=== PATIENT | male | born 1950 | race American Indian/Alaskan Native ===

== ENCOUNTER 2016-08-21 13:21 | Emergency (ER) | payer SELFPAY ==
[2016-08-21 13:21] VITALS: BMI 25.1
[2016-08-21 13:32] VITALS: TEMP 97.6
[2016-08-21] MEDS ORDERED: Naproxen 550 mg Tab PO STA (14:05)
--- NOTE | 2016-08-21 14:10 | C.PDOC ---
History Of Present Illness 66 yr old male presents to the ER with complaints of left shoulder pain. Patient states he was walking [place] yesterday on [place] when he slipped and fell. Patient denies LOC, back pain, weakness or numbness to the extremities. Time Seen by Provider: 08/21/16 13:47 Chief Complaint (Nursing): Upper Extremity Problem/Injury History Per: Patient History/Exam Limitations: no limitations Onset/Duration Of Symptoms: Days (1) Current Symptoms Are (Timing): Still Present Past Medical History Reviewed: Historical Data, Nursing Documentation, Vital Signs Vital Signs: Last Vital Signs Temp 97.6 F 08/21/16 13:29 Pulse 75 08/21/16 15:37 Resp 18 08/21/16 15:37 BP 132/75 08/21/16 15:37 Pulse Ox 98 08/21/16 15:37 - Medical History PMH: Arthritis, CAD, Diabetes, HTN, Hypercholesterolemia Surgical History: Coronary Stent (2011) - [facility] Procedures CLOSED ENDOSCOPIC BIOPSY OF LARGE INTESTINE (08/20/13) INSERTION OF ONE VASCULAR STENT (03/04/12) INSRT OF DRUG-ELUTING CORON ARTERY STENTS(S) (03/04/12) PERCUTANEOUS TRANSLUMINAL CORONARY ANGIOPLASTY [PTCA] (03/04/12) PROCEDURE ON SINGLE VESSEL (03/04/12) Family History: States: No Known Family Hx - Social History Hx Tobacco Use: Yes Hx Alcohol Use: No Hx Substance Use: No - Immunization History Hx Tetanus Toxoid Vaccination: No Hx Influenza Vaccination: No Hx Pneumococcal Vaccination: No Review Of Systems Except As Marked, All Systems Reviewed And Found Negative. Musculoskeletal: Positive for: Shoulder Pain (left shoulder). Negative for: Back Pain Neurological: Negative for: Weakness, Numbness Physical Exam - Physical Exam Appears: Non-toxic, No Acute Distress Skin: Warm, Dry Head: Atraumatic, Normacephalic Neck: Normal, Normal ROM, No Paracervical Tenderness, No Step Off Deformity, Supple Chest: Symmetrical, No Tenderness Cardiovascular: Rhythm Regular, No Murmur Respiratory: Normal Breath Sounds, No Rales, No Rhonchi, No Stridor, No Wheezing Extremity: Tenderness (Left shoulder tenderness), Swelling (Left shoulder, mild swelling) Neurological/Psych: Oriented x3, Normal Speech, Normal Motor ED Course And Treatment O2 Sat by Pulse Oximetry: 99 - Other Rad X-ray - Left Shoulder X-Ray: Viewed By Me, Read By Radiologist Interpretation: PROCEDURE: Radiographs of the Left Shoulder. HISTORY: fall. COMPARISON: No prior. FINDINGS: BONES: Normal. No fracture. JOINTS: Normal. Glenohumeral and acromioclavicular joints preserved. No osteoarthritis. SOFT TISSUES: Normal. OTHER FINDINGS: Ossific density superior to the left humeral head, likely from old injury. IMPRESSION: No fracture or dislocation. X-Ray - Humerous X-Ray: Viewed By Me, Read By Radiologist Interpretation: Humerus, left. History: Fall. Findings: No acute fracture or dislocation involving the left humerus. Impression: No evidence of fracture or dislocation. Medical Decision Making Medical Decision Making: PLAN: * X-Ray - Humerus, Left Shoulder * Naproxen PO * imaging neg, placed in sling, advse outpt f/u Disposition - Disposition Referrals: Misael Kelley MD [Staff Provider] - Disposition: HOME/ ROUTINE Disposition Time: 14:51 Condition: STABLE Additional Instructions: please follow up with specialist. return to er with worsening symptoms or concerns. Prescriptions: Naproxen 500 mg PO BID PRN #14 tab PRN Reason: Pain, Mild (1-3) Instructions: Shoulder Sprain (ED) - Clinical Impression Clinical Impression: Shoulder sprain - Scribe Statement The provider has reviewed the documentation as recorded by the Tobyibhenry Perea Provider Attestation: All medical record entries made by the Scribe were at my direction and personally dictated by me. I have reviewed the chart and agree that the record accurately reflects my personal performance of the history, physical exam, medical decision making, and the department course for this patient. I have also personally directed, reviewed, and agree with the discharge instructions and disposition.
[2016-08-21] MEDS ORDERED: Naproxen 550 mg Tab PO ONE (14:16)
--- NOTE | 2016-08-21 14:59 | RAD ---
PROCEDURE: Radiographs of the Left Shoulder HISTORY: fall COMPARISON: No prior. FINDINGS: BONES: Normal. No fracture. JOINTS: Normal. Glenohumeral and acromioclavicular joints preserved. No osteoarthritis. SOFT TISSUES: Normal. OTHER FINDINGS: Ossific density superior to the left humeral head, likely from old injury. IMPRESSION: No fracture or dislocation.
--- NOTE | 2016-08-21 15:12 | RAD ---
Humerus, left History: Fall. Findings: No acute fracture or dislocation involving the left humerus. Impression: No evidence of fracture or dislocation.
[2016-08-21 15:37] VITALS: BP 132/75; PULSE 75; RESP 18
[2016-08-21 16:22] VITALS: O2SAT 99
== END 2016-08-21 15:35 | disposition home or self-care (01) ==
LOC: C.ER 13:21
DX: S43.402A Unspecified sprain of left shoulder joint, initial encounter (principal); W00.0XXA Fall on same level due to ice and snow, initial encounter; Y92.414 Local residential or business street as the place of occurrence of the external cause

== ENCOUNTER 2016-11-23 16:48 | Emergency (ER) | payer SELFPAY ==
[2016-11-23 16:49] VITALS: BMI 25.1
[2016-11-23 17:00] VITALS: RESP 16
--- NOTE | 2016-11-23 17:29 | C.PDOC ---
History Of Present Illness Patient is a 66 y/o male that presents to the ED for evaluation of non- radiating right lower back pain that started last night. Patient states that pain is 10/10 in severity, is constant in nature, and is worse with movement. Notes taking Naproxen at home with no relief. Otherwise, denies any back problems, fall, extremity weakness/numbness, fever, urinary symptoms, abdominal pain, or any other associated symptoms at this time. Denies any difficulty ambulating. Time Seen by Provider: 11/23/16 17:07 Chief Complaint (Nursing): Back Pain History Per: Patient History/Exam Limitations: no limitations Onset/Duration Of Symptoms: Days (1), Persistent Current Symptoms Are (Timing): Still Present Quality Of Discomfort: "Pain" Severity: Severe Pain Scale Rating Of: 10 Previous Symptoms: None Associated Symptoms: None. denies: Incontinence, New Weakness, New Numbness Exacerbating Factor(s): Movement Recent travel outside of the [place]: No Additional History Per: Family Past Medical History Reviewed: Historical Data, Nursing Documentation, Vital Signs Vital Signs: Last Vital Signs Temp 98.5 F 11/23/16 16:57 Pulse 75 11/23/16 16:57 Resp 16 11/23/16 16:57 BP 126/76 11/23/16 16:57 Pulse Ox 98 11/23/16 17:38 - Medical History PMH: Arthritis, CAD, Diabetes, Hepatitis, HTN, Hypercholesterolemia Surgical History: Coronary Stent (2011) - [facility] Procedures CLOSED ENDOSCOPIC BIOPSY OF LARGE INTESTINE (08/20/13) INSERTION OF ONE VASCULAR STENT (03/04/12) INSRT OF DRUG-ELUTING CORON ARTERY STENTS(S) (03/04/12) PERCUTANEOUS TRANSLUMINAL CORONARY ANGIOPLASTY [PTCA] (03/04/12) PROCEDURE ON SINGLE VESSEL (03/04/12) Family History: States: No Known Family Hx - Social History Hx Tobacco Use: Yes Hx Alcohol Use: No Hx Substance Use: No - Immunization History Hx Tetanus Toxoid Vaccination: No Hx Influenza Vaccination: No Hx Pneumococcal Vaccination: No Review Of Systems Except As Marked, All Systems Reviewed And Found Negative. Constitutional: Negative for: Fever, Chills Cardiovascular: Negative for: Chest Pain Respiratory: Negative for: Shortness of Breath Gastrointestinal: Negative for: Nausea, Vomiting, Abdominal Pain, Diarrhea Genitourinary: Negative for: Dysuria, Frequency, Incontinence, Hematuria, Scrotal Pain Musculoskeletal: Positive for: Back Pain (right lower) Neurological: Negative for: Weakness, Numbness, Headache, Dizziness Physical Exam - Physical Exam Appears: Non-toxic, No Acute Distress Skin: Normal Color, Warm, Dry Head: Atraumatic, Normacephalic Eye(s): bilateral: Normal Inspection, EOMI Neck: Normal ROM, Supple Chest: Symmetrical Cardiovascular: Rhythm Regular, No Murmur Respiratory: Normal Breath Sounds, No Rales, No Rhonchi, No Wheezing Gastrointestinal/Abdominal: Soft, No Tenderness Back: Normal Inspection (no rash), No CVA Tenderness, No Vertebral Tenderness, No Muscle Spasm, Paraspinal Tenderness, No Straight Leg Raising Extremity: Bilateral: Atraumatic, No Pedal Edema, Normal Color And Temperature, Normal ROM, Pelvis-Stable Neurological/Psych: Oriented x3, Normal Speech Gait: Steady ED Course And Treatment O2 Sat by Pulse Oximetry: 98 (on RA) Pulse Ox Interpretation: Normal Medical Decision Making Medical Decision Making: Patient complains of low back pain, right sided. No history of trauma. Physical exam shows mild parspinal tenderness.Based on history and exam, xray not clinically indicated at this time. Clinical scenario likely muscular pain, unlikely for renal colic. Patient was treated with Toradol IM, Valium PO, and Lidoderm in the ER. On re-exam patient reports improvement of back pain. Patient has no fever, no bony tenderness, no saddle anesthesia or extremity weakness, or abdominal pain. Patient is ambulatory in the emergency department with no signs of discomfort. Patient was advised to follow up with their physician in 1-2 days. Disposition Counseled Patient/Family Regarding: Diagnosis, Need For Followup, Rx Given - Disposition Referrals: [facility] [Outside] [facility] [Outside] Disposition: HOME/ ROUTINE Disposition Time: 18:27 Condition: IMPROVED Additional Instructions: Please take pain medication as needed. You may leave on lidoderm patch for up to 12 hours. Follow up with your doctor or clinic in few days Return to ER for any worsening symptoms or concerning symptoms, including numbness, weakness or urinary problems Prescriptions: Cyclobenzaprine [Cyclobenzaprine HCl] 10 mg PO TID #30 tab Diclofenac 25 mg PO Q8 PRN #30 ect PRN Reason: Pain, Moderate (4-7) Instructions: Acute Low Back Pain (DC) - POA Present On Arrival: None - Clinical Impression Clinical Impression: Low back pain - PA / RECEIVING CLERK / Resident Statement MD/DO has reviewed & agrees with the documentation as recorded. - Scribe Statement The provider has reviewed the documentation as recorded by the Tobyibhenry Sterling All medical record entries made by the Tobyibhenry were at my direction and personally dictated by me. I have reviewed the chart and agree that the record accurately reflects my personal performance of the history, physical exam, medical decision making, and the department course for this patient. I have also personally directed, reviewed, and agree with the discharge instructions and disposition.
[2016-11-23] MEDS ORDERED: Lidocaine 5% Patch TD STA (17:35)
[2016-11-23] MEDS ORDERED: Lidocaine 5% Patch TD ONE (17:38)
[2016-11-23 18:47] VITALS: BP 151/98; PULSE 59; TEMP 98.2
[2016-11-24 11:04] VITALS: O2SAT 98
== END 2016-11-23 18:46 | disposition home or self-care (01) ==
LOC: C.ER 16:48
DX: M54.5 Low back pain (principal)
CPT/HCPCS: 96372; 99284; J1885

== ENCOUNTER 2017-08-06 11:28 | Emergency (ER) | payer OTHER ==
[2017-08-06 11:28] VITALS: BMI 28.5
[2017-08-06 11:37] VITALS: TEMP 98.2; O2SAT 98
--- NOTE | 2017-08-06 12:23 | C.PDOC ---
History Of Present Illness 67 year old male presents to the ER complaining of lower back pain for 1 week. No trauma or injury. Pain worsens with movement. He attributes the pain to laying in bed wring. States he had a similar episode last year. Patient reports pain has improved since arrival. No weakness, incontinence, changes in sensation , chest pain, or abdominal pain. Took an unknown medication this morning- "two pills". Time Seen by Provider: 08/06/17 11:57 Chief Complaint (Nursing): Back Pain History Per: Patient History/Exam Limitations: no limitations Onset/Duration Of Symptoms: Days (x 1 week) Current Symptoms Are (Timing): Better Previous Symptoms: Back Pain Past Medical History Reviewed: Historical Data, Nursing Documentation, Vital Signs Vital Signs: Last Vital Signs Temp 98.2 F 08/06/17 11:33 Pulse 78 08/06/17 13:47 Resp 18 08/06/17 13:47 BP 132/80 08/06/17 13:47 Pulse Ox 98 08/06/17 13:24 - Medical History PMH: Arthritis, CAD, Diabetes, Hepatitis, HTN, Hypercholesterolemia Denies: Chronic Kidney Disease Surgical History: Coronary Stent (2011) - [facility] Procedures CLOSED ENDOSCOPIC BIOPSY OF LARGE INTESTINE (08/20/13) INSERTION OF ONE VASCULAR STENT (03/04/12) INSRT OF DRUG-ELUTING CORON ARTERY STENTS(S) (03/04/12) PERCUTANEOUS TRANSLUMINAL CORONARY ANGIOPLASTY [PTCA] (03/04/12) PROCEDURE ON SINGLE VESSEL (03/04/12) Family History: States: No Known Family Hx - Social History Hx Tobacco Use: Yes Hx Alcohol Use: No Hx Substance Use: No - Immunization History Hx Tetanus Toxoid Vaccination: No Hx Influenza Vaccination: No Hx Pneumococcal Vaccination: No Review Of Systems Except As Marked, All Systems Reviewed And Found Negative. Constitutional: Negative for: Fever, Chills Cardiovascular: Negative for: Chest Pain Gastrointestinal: Negative for: Abdominal Pain Genitourinary: Negative for: Incontinence Musculoskeletal: Positive for: Back Pain Neurological: Negative for: Weakness, Numbness Physical Exam - Physical Exam Appears: Non-toxic, No Acute Distress Skin: Warm, Dry Head: Atraumatic, Normacephalic Eye(s): bilateral: Normal Inspection, EOMI Nose: Normal Oral Mucosa: Moist Chest: Symmetrical Cardiovascular: Rhythm Regular Respiratory: Normal Breath Sounds, No Accessory Muscle Use, Other (speaking full sentences) Gastrointestinal/Abdominal: Soft, No Tenderness Back: No CVA Tenderness, No Vertebral Tenderness, Paraspinal Tenderness (at lumbar region) Extremity: Normal ROM Extremity: Bilateral: Atraumatic, Normal Color And Temperature, Normal ROM Neurological/Psych: Oriented x3, Normal Speech, Normal Sensation, No Other ( focal deficits) Gait: Steady ED Course And Treatment O2 Sat by Pulse Oximetry: 98 (RA) Pulse Ox Interpretation: Normal Progress Note: Ordered x-ray of LS spine and urinalysis. Patient given Flexeril 5 mg PO. UA is clear. Patient informed of negative UA results. On reassessment , patient is resting comfortably, with improvement of back pain. Patient remains afebrile, with no bony tenderness, extremity numbness or weakness, or abdominal pain. Patient is ambulatory in the emergency department with no signs of discomfort. Patient was advised to follow up with physician/clinic in 1-2 days. Disposition - Disposition Referrals: Minal Lizarraga MD [Staff Provider] - Disposition: HOME/ ROUTINE Disposition Time: 13:22 Condition: STABLE Additional Instructions: Follow up with your primary medical doctor or clinic in 2-5 days for further evaluation. Take medications as prescribed. Return to the emergency department at any time if symptoms persist or worsen. Prescriptions: Cyclobenzaprine HCl 5 mg PO TID PRN #20 tablet PRN Reason: Muscle Spasm Naproxen [Naprosyn] 1 tab PO BID PRN #20 tab PRN Reason: Pain Instructions: Low Back Pain in Adults Forms: [facility] ([place]i) - Clinical Impression Clinical Impression: Low back strain - PA / RESIDENT CARE ASSOCIATE / Resident Statement MD/DO has reviewed & agrees with the documentation as recorded. - Scribe Statement The provider has reviewed the documentation as recorded by the Scribe (Renetta Benítez) All medical record entries made by the Scribe were at my direction and personally dictated by me. I have reviewed the chart and agree that the record accurately reflects my personal performance of the history, physical exam, medical decision making, and the department course for this patient. I have also personally directed, reviewed, and agree with the discharge instructions and disposition.
[2017-08-06 12:46] LABS: SQUAMOUS EPITHIAL < 1 /hpf (0-5); URINE BILIRUBIN NEGATIVE (NEGATIVE); URINE BLOOD NEGATIVE (NEGATIVE); URINE CLARITY Clear (Clear); URINE COLOR Yellow (YELLOW); URINE GLUCOSE (UA) NORMAL (Normal); URINE LEUKOCYTE ESTERASE NEG Leu/uL (Negative); URINE NITRATE NEGATIVE (NEGATIVE); URINE PROTEIN 1+ mg/dL (NEGATIVE)
--- NOTE | 2017-08-06 13:17 | RAD ---
PROCEDURE: Radiographs of the Lumbar Spine. HISTORY: pain COMPARISON: None available. FINDINGS: BONES: Alignment appears satisfactory. No listhesis. No acute displaced fracture identified. Multilevel degenerative changes including small osteophyte formation. Facet hypertrophy. DISC SPACES: Unremarkable. OTHER FINDINGS: None. IMPRESSION: Degenerative changes.
[2017-08-06 13:48] VITALS: BP 132/80; PULSE 78; RESP 18
== END 2017-08-06 13:47 | disposition home or self-care (01) ==
LOC: C.ER 11:28
DX: S39.012A Strain of muscle, fascia and tendon of lower back, initial encounter (principal); X58.XXXA Exposure to other specified factors, initial encounter; E78.00 Pure hypercholesterolemia, unspecified; I10 Essential (primary) hypertension; E11.9 Type 2 diabetes mellitus without complications; I25.10 Atherosclerotic heart disease of native coronary artery without angina pectoris; Z72.0 Tobacco use

== ENCOUNTER 2017-08-29 12:16 | Emergency (ER) | payer OTHER ==
[2017-08-29 12:41] VITALS: BMI 28.8
[2017-08-29 12:43] VITALS: RESP 18
[2017-08-29] MEDS ORDERED: Sodium Chloride 0.9% 1,000 ML IV ONE (13:27)
[2017-08-29 13:56] LABS: SQUAMOUS EPITHIAL < 1 /hpf (0-5); URINE BILIRUBIN NEGATIVE (NEGATIVE); URINE BLOOD NEGATIVE (NEGATIVE); URINE CLARITY Clear (Clear); URINE COLOR Yellow (YELLOW); URINE GLUCOSE (UA) NORMAL (Normal); URINE LEUKOCYTE ESTERASE NEG Leu/uL (Negative); URINE PROTEIN 1+ mg/dL (NEGATIVE)
--- NOTE | 2017-08-29 14:10 | C.PDOC ---
History Of Present Illness 67 year old male, whose PMHx includes HTN and HLD, presents to the ED for evaluation for evaluation of right flank pain which has been intermittent for months. Patient has been evaluated in the ED twice. Patient denies trauma, fever , chills, and has no other complaints at this time. Time Seen by Provider: 08/29/17 13:04 Chief Complaint (Nursing): Back Pain History Per: Patient History/Exam Limitations: no limitations Onset/Duration Of Symptoms: Other (few months ) Current Symptoms Are (Timing): Still Present Quality Of Discomfort: "Pain" Associated Symptoms: denies: Incontinence, New Weakness Additional History Per: Patient Past Medical History Reviewed: Historical Data, Nursing Documentation, Vital Signs Vital Signs: Last Vital Signs Temp 97.6 F 08/29/17 15:39 Pulse 61 08/29/17 15:39 Resp 18 08/29/17 15:39 BP 189/97 H 08/29/17 15:39 Pulse Ox 100 08/29/17 15:39 - Medical History PMH: Arthritis, CAD, Dementia, Diabetes, Hepatitis, HTN, Hypercholesterolemia Denies: Chronic Kidney Disease Surgical History: Coronary Stent (2011) - [facility] Procedures CLOSED ENDOSCOPIC BIOPSY OF LARGE INTESTINE (08/20/13) INSERTION OF ONE VASCULAR STENT (03/04/12) INSRT OF DRUG-ELUTING CORON ARTERY STENTS(S) (03/04/12) PERCUTANEOUS TRANSLUMINAL CORONARY ANGIOPLASTY [PTCA] (03/04/12) PROCEDURE ON SINGLE VESSEL (03/04/12) Family History: States: Unknown Family Hx - Social History Hx Tobacco Use: Yes Hx Alcohol Use: No Hx Substance Use: No - Immunization History Hx Tetanus Toxoid Vaccination: No Hx Influenza Vaccination: No Hx Pneumococcal Vaccination: Yes Review Of Systems Constitutional: Negative for: Fever, Chills Musculoskeletal: Positive for: Other (right flank pain ) Physical Exam - Physical Exam Appears: Non-toxic, No Acute Distress Skin: Normal Color, Warm, Dry Head: Atraumatic, Normacephalic Eye(s): bilateral: Normal Inspection Oral Mucosa: Moist Neck: Supple Chest: Symmetrical, No Deformity, No Tenderness Cardiovascular: Rhythm Regular, No Murmur Respiratory: Normal Breath Sounds, No Rales, No Rhonchi, No Wheezing Gastrointestinal/Abdominal: Soft, No Tenderness Back: Other (mild right flank tenderness ) Extremity: Normal ROM, Capillary Refill (less than 2 seconds ) Neurological/Psych: Oriented x3, Normal Speech, Normal Cognition ED Course And Treatment - Laboratory Results Result Diagrams: 08/29/17 14:23 08/29/17 14:23 O2 Sat by Pulse Oximetry: 99 (on RA ) Pulse Ox Interpretation: Normal Medical Decision Making Medical Decision Making: right flank pain - r/o kidney stone, vs uti/pyelo vs msk pain - labs imagin gpending Progress: Bloodwork, urinalysis, CT A/P ordered and reviewed. Toradol IVP and IVF administered. labs unremarkable no ruq pain. pt observed on phone in nad. pain resolved. ct shows gallstones, ?stone in duct. no elevated lfts. notified of results advise outpt eval, including us, mrcp. strict return precautions advised. went over results in detail with patient and family who verbalize understanding. Disposition - Disposition Referrals: Daryl Shelby MD [Staff Provider] - [facility] [Outside] [facility] [Outside] [facility] [Outside] Fabian Ramos MD [Staff Provider] - Disposition: HOME/ ROUTINE Disposition Time: 15:12 Condition: STABLE Additional Instructions: please follow up with specialist. return to er with worsening symptoms or concerns. you will need further diagnositc testing as an outpt. return immediately with any worsening. Instructions: Gallstones, Flank Pain Forms: [facility] ([place]) - Clinical Impression Clinical Impression: Gallstone, Flank pain - Scribe Statement The provider has reviewed the documentation as recorded by the Scribe (Nilda Sterling) Provider Attestation: All medical record entries made by the Scribe were at my direction and personally dictated by me. I have reviewed the chart and agree that the record accurately reflects my personal performance of the history, physical exam, medical decision making, and the department course for this patient. I have also personally directed, reviewed, and agree with the discharge instructions and disposition.
[2017-08-29] MEDS ORDERED: Sodium Chloride 0.9% 1,000 ML ONE (14:16)
[2017-08-29 14:31] LABS: BASO % 0.5 % (0.0-2.0); EOS # 0.1 K/uL (0.0-0.7); EOS % 2.2 % (0.0-4.0); HEMOGLOBIN 14.3 g/dL (12.0-18.0); LYMPH # 2.2 K/uL (1.0-4.3); LYMPH % 45.3 % (20.0-40.0); MEAN CELL VOLUME 92.9 fL (80.0-94.0); MEAN CORPUSCULAR HEMOGLOBIN 31.5 pg (27.0-31.0); MEAN CORPUSCULAR HGB CONC 33.9 g/dL (33.0-37.0); MEAN PLATELET VOLUME 7.8 fL (7.2-11.7); MONO # 0.6 K/uL (0.0-0.8); MONO % 11.6 % (0.0-10.0); NEUT % 40.4 % (50.0-75.0); NRBC % 0.2 % (0.0-2.0); RBC 4.54 Mil/uL (4.40-5.90); RED CELL DISTRIBUTION WIDTH 13.5 % (11.5-14.5); WHITE BLOOD COUNT 4.9 K/uL (4.8-10.8)
[2017-08-29 14:38] LABS: PROTHROMBIN TIME 11.9 SECONDS (9.7-12.2)
[2017-08-29 14:40] LABS: ALBUMIN 3.7 g/dL (3.5-5.0); ALT/SGPT 52 U/L (21-72); AST/SGOT 55 U/L (17-59); BLOOD UREA NITROGEN 11 mg/dL (9-20); CALCIUM 8.9 mg/dl (8.6-10.4); GFR AFRICAN-AMERICAN > 60; GFR NON-AFRICAN AMERICAN > 60; LIPASE 101 U/L (23-300)
--- NOTE | 2017-08-29 14:50 | CT ---
PROCEDURE: CT Abdomen and Pelvis without intravenous contrast HISTORY: right flank/back pain COMPARISON: None. TECHNIQUE: Without contrast.. Contrast Dose: 0 Radiation dose: Total exam DLP = Total exam DLP = 466.20 mGy-cm. This CT exam was performed using one or more of the following dose reduction techniques: Automated exposure control, adjustment of the mA and/or kV according to patient size, and/or use of iterative reconstruction technique. FINDINGS: LOWER THORAX: Unremarkable. LIVER: Unremarkable. No gross lesion or ductal dilatation. GALLBLADDER AND BILE DUCTS: Multiple peripherally calcified gallstones. No mural thickening or pericholecystic fluid. Very small calcification in the region of the distal common bile duct may reflect a distal common duct calculus. No evidence of common duct dilatation. No associated pancreatic ductal dilatation. PANCREAS: Unremarkable. No gross lesion or ductal dilatation. SPLEEN: Unremarkable. ADRENALS: Unremarkable. No mass. KIDNEYS AND URETERS: Unremarkable. No hydronephrosis. No solid mass. No calculus. VASCULATURE: Unremarkable. No aortic aneurysm. BOWEL: Unremarkable. No obstruction. No gross mural thickening. APPENDIX: Unremarkable. Normal appendix. PERITONEUM: Unremarkable. No free fluid. No free air. LYMPH NODES: Unremarkable. No enlarged lymph nodes. BLADDER: Nondistended REPRODUCTIVE: Normal prostate BONES: No acute fracture. OTHER FINDINGS: None. IMPRESSION: Questionable very small nonobstructing distal common bile duct calculus. Multiple peripherally calcified gallstones. No evidence of cholecystitis. No evidence of urinary calculus or urinary tract obstruction. No other significant abnormality.
[2017-08-29 15:40] VITALS: BP 189/97; PULSE 61; TEMP 97.6
[2017-08-29 17:04] VITALS: O2SAT 99
== END 2017-08-29 15:40 | disposition home or self-care (01) ==
LOC: C.ER 12:16
DX: K80.20 Calculus of gallbladder without cholecystitis without obstruction (principal); I10 Essential (primary) hypertension; E11.9 Type 2 diabetes mellitus without complications; I25.10 Atherosclerotic heart disease of native coronary artery without angina pectoris; E78.00 Pure hypercholesterolemia, unspecified; Z72.0 Tobacco use
CPT/HCPCS: 74176; 80053; 81001; 83690; 85025; 85610; 85730; 96361; 96374; 99284; J1885; J7040

== ENCOUNTER 2017-12-24 11:47 | Emergency (ER) | payer OTHER ==
[2017-12-24 11:55] VITALS: BMI 25.8
[2017-12-24 12:13] VITALS: O2SAT 100
--- NOTE | 2017-12-24 12:33 | C.PDOC ---
History Of Present Illness 67yo male, with history of coronary stents and hypertension, comes to ER with complaints of chest pain since this morning. Patient also reports feeling weak. Otherwise, he denies any fever, chills, shortness of breath, abdominal pain, vomiting, and numbness. He has no other medical complaints. Time Seen by Provider: 12/24/17 12:04 Chief Complaint (Nursing): Chest Pain History Per: Patient History/Exam Limitations: no limitations Onset/Duration Of Symptoms: Hrs Current Symptoms Are (Timing): Still Present Quality: "Pain" Associated Symptoms: denies: Nausea, Dyspnea, Diaphoresis, Syncope Additional History Per: Patient Past Medical History Reviewed: Historical Data, Nursing Documentation, Vital Signs Vital Signs: Last Vital Signs Temp 98.2 F 12/24/17 11:55 Pulse 57 L 12/24/17 12:13 Resp 16 12/24/17 12:12 BP 142/81 12/24/17 12:12 Pulse Ox 100 12/24/17 12:33 - Medical History PMH: Arthritis, CAD, Dementia, Diabetes, Hepatitis, HTN, Hypercholesterolemia Denies: Chronic Kidney Disease Surgical History: Coronary Stent (2011) - [facility] Procedures CLOSED ENDOSCOPIC BIOPSY OF LARGE INTESTINE (08/20/13) INSERTION OF ONE VASCULAR STENT (03/04/12) INSRT OF DRUG-ELUTING CORON ARTERY STENTS(S) (03/04/12) PERCUTANEOUS TRANSLUMINAL CORONARY ANGIOPLASTY [PTCA] (03/04/12) PROCEDURE ON SINGLE VESSEL (03/04/12) Family History: States: Unknown Family Hx - Social History Hx Tobacco Use: Yes Hx Alcohol Use: No Hx Substance Use: No - Immunization History Hx Tetanus Toxoid Vaccination: No Hx Influenza Vaccination: No Hx Pneumococcal Vaccination: Yes Review Of Systems Except As Marked, All Systems Reviewed And Found Negative. Constitutional: Positive for: Weakness. Negative for: Fever, Chills Cardiovascular: Positive for: Chest Pain Respiratory: Negative for: Cough, Shortness of Breath Gastrointestinal: Negative for: Nausea, Vomiting, Abdominal Pain Neurological: Negative for: Weakness, Numbness Physical Exam - Physical Exam Appears: Non-toxic, No Acute Distress Skin: Warm, Dry Head: Atraumatic, Normacephalic Eye(s): bilateral: Normal Inspection Neck: Normal ROM, Supple Chest: Symmetrical, No Tenderness Cardiovascular: Rhythm Regular, No Murmur Respiratory: Normal Breath Sounds, No Rales, No Rhonchi, No Stridor Gastrointestinal/Abdominal: Normal Exam, Soft, No Tenderness Extremity: Normal ROM, No Pedal Edema Neurological/Psych: Oriented x3 ED Course And Treatment - Laboratory Results Result Diagrams: 12/24/17 12:34 12/24/17 12:34 Lab Interpretation: Normal ECG: Interpreted By Me ECG Rhythm: Sinus Rhythm ECG Interpretation: Normal Rate From EC O2 Sat by Pulse Oximetry: 100 (RA) Pulse Ox Interpretation: Normal - Radiology CXR: Interpreted by Me CXR Interpretation: Yes: No Acute Disease Progress Note: Labs, Urinalysis, CXR ordered. Patient refused admission and request discharge. #2 troponon (-). Patient and family advised to return to ED if any increase symptoms Reassessment Condition: Improved Disposition Counseled Patient/Family Regarding: Studies Performed, Diagnosis, Need For Followup - Disposition Referrals: Sydney Robertson MD [Staff Provider] - Disposition: HOME/ ROUTINE Disposition Time: 16:00 Condition: STABLE Instructions: Chest Pain Forms: [facility] (Syriac) - POA Present On Arrival: None - Clinical Impression Clinical Impression: Chest pain - Scribe Statement The provider has reviewed the documentation as recorded by the Carson Anand Provider Attestation: All medical record entries made by the Tobyibhenry were at my direction and personally dictated by me. I have reviewed the chart and agree that the record accurately reflects my personal performance of the history, physical exam, medical decision making, and the department course for this patient. I have also personally directed, reviewed, and agree with the discharge instructions and disposition.
[2017-12-24 12:40] LABS: BASO % 0.5 % (0.0-2.0); EOS # 0.1 K/uL (0.0-0.7); EOS % 1.4 % (0.0-4.0); HEMOGLOBIN 13.6 g/dL (12.0-18.0); LYMPH # 1.7 K/uL (1.0-4.3); MEAN CELL VOLUME 92.6 fL (80.0-94.0); MEAN CORPUSCULAR HEMOGLOBIN 31.7 pg (27.0-31.0); MEAN CORPUSCULAR HGB CONC 34.2 g/dL (33.0-37.0); MEAN PLATELET VOLUME 7.5 fL (7.2-11.7); MONO # 0.6 K/uL (0.0-0.8); MONO % 12.9 % (0.0-10.0); NEUT % 46.2 % (50.0-75.0); RBC 4.31 Mil/uL (4.40-5.90); RED CELL DISTRIBUTION WIDTH 13.5 % (11.5-14.5); WHITE BLOOD COUNT 4.4 K/uL (4.8-10.8)
[2017-12-24 12:52] LABS: ALBUMIN 3.9 g/dL (3.5-5.0); BLOOD UREA NITROGEN 10 mg/dL (9-20); CALCIUM 9.2 mg/dl (8.6-10.4); GFR AFRICAN-AMERICAN > 60; GFR NON-AFRICAN AMERICAN > 60
[2017-12-24 12:53] LABS: ALB/GLOB RATIO 1.2 (1.0-2.1); ALT/SGPT 53 U/L (21-72); AST/SGOT 48 U/L (17-59); LIPASE 118 U/L (23-300)
[2017-12-24 13:04] LABS: CK-MB 1.58 ng/mL (0.0-3.38)
[2017-12-24 13:27] LABS: URINE BILIRUBIN NEGATIVE (NEGATIVE); URINE BLOOD NEGATIVE (NEGATIVE); URINE CLARITY Clear (Clear); URINE COLOR Yellow (YELLOW); URINE GLUCOSE (UA) NORMAL (Normal); URINE LEUKOCYTE ESTERASE NEG Leu/uL (Negative); URINE PROTEIN NEGATIVE (NEGATIVE)
[2017-12-24 15:54] VITALS: BP 156/100; PULSE 61; RESP 20; TEMP 98.5
--- NOTE | 2017-12-24 16:28 | RAD ---
Date of service: 12/24/2017 HISTORY: SOB COMPARISON: 08/19/2016 TECHNIQUE: Chest PA and lateral FINDINGS: LUNGS: No infiltrate. Calcified granuloma in left apex. PLEURA: No significant pleural effusion identified. No pneumothorax apparent. CARDIOVASCULAR: Normal. OSSEOUS STRUCTURES: No significant abnormalities. VISUALIZED UPPER ABDOMEN: Normal. OTHER FINDINGS: None. IMPRESSION: No active disease.
--- NOTE | 2017-12-24 17:17 | CARD ---
APPROVED REPORT Date of service: 12/24/2017 EKG Measurement Heart [id number] <Conclusion> Normal sinus rhythm Normal ECG
== END 2017-12-24 15:57 | disposition home or self-care (01) ==
LOC: C.ER 11:47
DX: R07.9 Chest pain, unspecified (principal)

== ENCOUNTER 2018-03-02 08:28 | Emergency (ER) | payer OTHER ==
[2018-03-02 08:28] VITALS: BMI 25.8
[2018-03-02 08:59] VITALS: RESP 18; TEMP 98.7; O2SAT 100
--- NOTE | 2018-03-02 09:27 | C.PDOC ---
History Of Present Illness 67 y/o male with history of HTN and High cholesterol presents to ED with c/o back pain for 1 week. Patient states he took Aspirin with no improvement and denies recent injury, leg swelling, change in sensation, bowel/bladder incontinence or any other complaints at this time. Time Seen by Provider: 03/02/18 08:49 Chief Complaint (Nursing): Back Pain History Per: Patient History/Exam Limitations: no limitations Onset/Duration Of Symptoms: Days Current Symptoms Are (Timing): Still Present Quality Of Discomfort: "Pain" Past Medical History Reviewed: Historical Data, Nursing Documentation, Vital Signs Vital Signs: Last Vital Signs Temp 98.7 F 03/02/18 08:33 Pulse 64 03/02/18 08:33 Resp 18 03/02/18 08:33 BP 125/74 03/02/18 08:33 Pulse Ox 100 03/02/18 09:31 - Medical History PMH: Arthritis, CAD, Dementia, Diabetes, Hepatitis, HTN, Hypercholesterolemia Surgical History: Coronary Stent (2011) - [facility] Procedures CLOSED ENDOSCOPIC BIOPSY OF LARGE INTESTINE (08/20/13) INSERTION OF ONE VASCULAR STENT (03/04/12) INSRT OF DRUG-ELUTING CORON ARTERY STENTS(S) (03/04/12) PERCUTANEOUS TRANSLUMINAL CORONARY ANGIOPLASTY [PTCA] (03/04/12) PROCEDURE ON SINGLE VESSEL (03/04/12) Family History: States: No Known Family Hx - Social History Hx Tobacco Use: Yes Hx Alcohol Use: No Hx Substance Use: No - Immunization History Hx Tetanus Toxoid Vaccination: No Hx Influenza Vaccination: No Hx Pneumococcal Vaccination: Yes Review Of Systems Except As Marked, All Systems Reviewed And Found Negative. Musculoskeletal: Positive for: Back Pain Physical Exam - Physical Exam Appears: Non-toxic, No Acute Distress Skin: Warm, Dry, No Rash Head: Atraumatic, Normacephalic Eye(s): bilateral: Normal Inspection Oral Mucosa: Moist Neck: Normal ROM, Supple Cardiovascular: Rhythm Regular Respiratory: Normal Breath Sounds, No Rales, No Rhonchi, No Wheezing Gastrointestinal/Abdominal: Soft, No Tenderness, No Guarding, No Rebound Back: No CVA Tenderness, No Muscle Spasm, No Straight Leg Raising, Other ( paralumbar tenderness) Extremity: No Pedal Edema, Capillary Refill (<2 seconds) Pulses: Left Dorsalis Pedis: Normal, Right Dorsalis Pedis: Normal Neurological/Psych: Oriented x3, Normal Speech, Normal Cognition, Normal Motor, Normal Sensation ED Course And Treatment O2 Sat by Pulse Oximetry: 100 (RA) Pulse Ox Interpretation: Normal Medical Decision Making Medical Decision Making: Assessment: Back pain Disposition Counseled Patient/Family Regarding: Studies Performed, Diagnosis, Need For Followup, Rx Given - Disposition Referrals: Minal Lizarraga MD [Staff Provider] - Disposition: HOME/ ROUTINE Disposition Time: 10:20 Condition: STABLE Additional Instructions: follow up with your doctor within 2 days call to make an appointment take medications as needed for pain return to ER if symptoms worsens or progress Prescriptions: Cyclobenzaprine [Cyclobenzaprine HCl] 10 mg PO TID PRN #12 tab PRN Reason: Muscle Spasm Lidocaine 5% [Lidoderm] 1 ea TD DAILY PRN #12 patch PRN Reason: Pain, Moderate (4-7) Naproxen [Naprosyn] 500 mg PO BID PRN #16 tab PRN Reason: Pain, Moderate (4-7) Instructions: Low Back Pain in Adults Forms: [facility] (Romanian), General Discharge Instructions - Clinical Impression Clinical Impression: Low back pain - Scribe Statement The provider has reviewed the documentation as recorded by the Tobyibe Rosette Sheikh All medical record entries made by the Scribe were at my direction and personally dictated by me. I have reviewed the chart and agree that the record accurately reflects my personal performance of the history, physical exam, medical decision making, and the department course for this patient. I have also personally directed, reviewed, and agree with the discharge instructions and disposition.
--- NOTE | 2018-03-02 09:28 | RAD ---
Date of service: 03/02/2018 PROCEDURE: Radiographs of the Lumbar Spine. HISTORY: back pain COMPARISON: No prior. FINDINGS: BONES: Normal alignment. No listhesis. No fracture. DISC SPACES: Narrowing of the L4-5 disc space consistent with degenerative disc disease. The remaining disc spaces are maintained height. OTHER FINDINGS: None. IMPRESSION: Degenerative disc disease at L4-5. No fracture or dislocation.
[2018-03-02 10:35] VITALS: BP 137/84; PULSE 62
== END 2018-03-02 10:35 | disposition home or self-care (01) ==
LOC: C.ER 08:28
DX: M54.5 Low back pain (principal)